=== PATIENT | male | born 1990 | race Caucasian/White ===

== ENCOUNTER 2022-03-09 13:44 | Inpatient (IN) | payer OTHER ==
[2022-03-09] VITALS (21 sets, daily range): BP systolic 117–147; BP diastolic 73–96
[~2022-03-09] VITALS: Ht 188 cm; Wt 91.9 kg
[2022-03-09] MEDS ORDERED: SODIUM CHLORIDE 0.9% 1000ML 1,000 ML IV STA ×3 (14:24)
[2022-03-09] MEDS ORDERED: AMIODARONE HCL 150MG 100 ML ONE (14:26)
[2022-03-09 14:27] LABS: BASOPHILS % 0.5 % (0.0-1.0); EOSINOPHILS # (AUTO) 0.1 (0.0-0.4); EOSINOPHILS % 1.4 % (0.0-6.0); HEMOGLOBIN 15.5 g/dL (14.0-18.0); LYMPHOCYTES # (AUTO) 1.9 (1.0-3.2); LYMPHOCYTES % 29.7 % (18.0-39.1); MEAN CORPUSCULAR HEMOGLOBIN 29.2 pg (28-32); MEAN CORPUSCULAR HGB CONC 33.7 g/dL (31-35); MEAN CORPUSCULAR VOLUME 86.6 fL (81-99); MONOCYTES # (AUTO) 0.8 (0.2-0.8); MONOCYTES % 12.3 % (4.4-11.3); NEUTROPHILS # (AUTO) 3.6 (2.1-6.9); NEUTROPHILS % 55.9 % (38.7-80.0); PLATELET COUNT 234 x10e3/uL (140-360); RED BLOOD COUNT 5.31 x10e6/uL (4.3-5.7); RED CELL DISTRIBUTION WIDTH 12.8 % (11.7-14.4)
[2022-03-09] MEDS ORDERED: AMIODARONE HCL 100 ML IV ONE (14:30)
[2022-03-09] MEDS ORDERED: AMIODARONE 900MG 500 ML IV SCH (14:30)
[2022-03-09] MEDS ORDERED: AMIODARONE HCL 150 MG/100 ML BAG IV ONE (14:30)
[2022-03-09] MEDS ORDERED: AMIODARONE 900MG 500 ML IV ONE (14:39)
[2022-03-09 14:42] LABS: INR 1.01; PROTHROMBIN TIME 14.2 seconds (11.9-14.5)
[2022-03-09 14:43] LABS: PARTIAL THROMBOPLASTIN TIME 28.5 seconds (23.8-35.5)
[2022-03-09 14:50] LABS: ALANINE AMINOTRANSFERASE 19 IU/L (0-55); ALBUMIN 4.2 g/dL (3.5-5.0); ALBUMIN/GLOBULIN RATIO 1.1 (0.8-2.0); ALKALINE PHOSPHATASE 73 IU/L (40-150); ANION GAP 15.4 mmol/L (8-16); BLOOD UREA NITROGEN 16 mg/dL (7-26); BUN/CREATININE RATIO 11 (6-25); CALCIUM 9.2 mg/dL (8.4-10.2); CARBON DIOXIDE 26 mmol/L (22-29); CHLORIDE 102 mmol/L (98-107); CREATINE KINASE 122 IU/L (30-200); CREATININE, SERUM 1.49 mg/dL (0.72-1.25); EST GLOMERULAR FILTRATION RATE 55 ML/MIN (60-); GLUCOSE 153 mg/dL (74-118); POTASSIUM 3.4 mmol/L (3.5-5.1); SODIUM 140 mmol/L (136-145)
[2022-03-09 15:02] LABS: MAGNESIUM 1.4 MG/DL (1.3-2.1); PHOSPHORUS 1.7 MG/DL (2.3-4.7)
[2022-03-09 15:43] LABS: CLARITY,URINE CLEAR (CLEAR); COLOR,URINE YELLOW (YELLOW); KETONES,URINE NEGATIVE (NEGATIVE); LEUKOCYTE ESTERASE ,URINE NEGATIVE (NEGATIVE); NITRITE,URINE NEGATIVE (NEGATIVE); PROTEIN,URINE DIPSTICK NEGATIVE (NEGATIVE); URINE UROBILINOGEN 0.2 mg/dL (0.2 - 1)
[2022-03-09 15:45] LABS: AMPHETAMINES SCREEN,URINE NEGATIVE (NEGATIVE); BENZODIAZEPINES SCREEN,URINE NEGATIVE (NEGATIVE); PHENCYCLIDINE SCREEN,URINE NEGATIVE (NEGATIVE)
[2022-03-09] MEDS: SODIUM CHLORIDE 0.9% 1000ML 1,000 ML IV SCH ×2 (15:45→16:26)
[2022-03-09] MEDS ORDERED: POTASSIUM CHLORIDE 20 MEQ TAB CR PO ONE (18:15)
[2022-03-09] MEDS: MAGNESIUM SULFATE 2GM/50ML 50 ML IV SCH ×2 (18:32→20:34)
[2022-03-09] MEDS ORDERED: MELATONIN 3 MG TAB PO PRN (22:00)
[2022-03-09] MEDS ORDERED: METOPROLOL TARTRATE INJ 1 MG/ML VIAL IV PRN (22:00)
[2022-03-09] MEDS ORDERED: ACETAMINOPHEN 325 MG TAB PO PRN (22:00)
[2022-03-09] MEDS ORDERED: PHOSPHORUS 250 MG TAB PO ONE (22:15)
[2022-03-09] MEDS ORDERED: MAGNESIUM SULF 1GRAM/DEXTROSE 100 ML IV ONE (22:30)
[2022-03-09] MEDS ORDERED: CHOLESTYRAMINE 4 GM PACKET PO ONE (23:30)
[2022-03-10] VITALS (39 sets, daily range): BP systolic 102–144; BP diastolic 63–111
[2022-03-10 00:25] LABS: CREATINE KINASE 98 IU/L (30-200)
[2022-03-10] MEDS: SODIUM CHLORIDE 0.9% 1000ML 1,000 ML IV SCH ×2 (02:18→10:16)
[2022-03-10 04:57] LABS: BASOPHILS % 0.5 % (0.0-1.0); EOSINOPHILS # (AUTO) 0.1 (0.0-0.4); EOSINOPHILS % 1.7 % (0.0-6.0); HEMATOCRIT 40.8 % (38.2-49.6); HEMOGLOBIN 13.3 g/dL (14.0-18.0); LYMPHOCYTES # (AUTO) 1.3 (1.0-3.2); LYMPHOCYTES % 20.1 % (18.0-39.1); MEAN CORPUSCULAR HGB CONC 32.6 g/dL (31-35); MEAN CORPUSCULAR VOLUME 88.9 fL (81-99); MONOCYTES # (AUTO) 0.7 (0.2-0.8); MONOCYTES % 10.8 % (4.4-11.3); NEUTROPHILS # (AUTO) 4.4 (2.1-6.9); NEUTROPHILS % 66.6 % (38.7-80.0); PLATELET COUNT 189 x10e3/uL (140-360); RED BLOOD COUNT 4.59 x10e6/uL (4.3-5.7); RED CELL DISTRIBUTION WIDTH 12.5 % (11.7-14.4)
[2022-03-10 05:19] LABS: ANION GAP 11.5 mmol/L (8-16); CALCIUM 7.9 mg/dL (8.4-10.2); CREATININE, SERUM 1.07 mg/dL (0.72-1.25); POTASSIUM 4.5 mmol/L (3.5-5.1)
[2022-03-10 05:47] LABS: MAGNESIUM 2.4 MG/DL (1.3-2.1); PHOSPHORUS 2.8 MG/DL (2.3-4.7)
[2022-03-10 06:06] LABS: THYROID STIMULATING HORMONE 2.306 uIU/mL (0.350-4.940)
[2022-03-10 08:33] LABS: CREATINE KINASE 94 IU/L (30-200)
[2022-03-10] MEDS ORDERED: AMIODARONE HCL 200 MG TAB PO SCH (12:00)
[2022-03-10] MEDS ORDERED: AMIODARONE HCL 200 MG TAB PO ONE (14:00)
[2022-03-10] MEDS: AMIODARONE HCL 200 MG TAB PO SCH (21:29)
[2022-03-11] VITALS (15 sets, daily range): BP systolic 99–124; BP diastolic 60–83
[2022-03-11 05:50] LABS: ANION GAP 11.3 mmol/L (8-16); CALCIUM 9.4 mg/dL (8.4-10.2); CREATININE, SERUM 1.16 mg/dL (0.72-1.25); POTASSIUM 4.3 mmol/L (3.5-5.1)
[2022-03-11] MEDS: AMIODARONE HCL 200 MG TAB PO SCH ×2 (08:01→16:56)
[2022-03-11] MEDS: METOPROLOL TARTRATE 50 MG TAB PO SCH ×2 (13:08→16:57)
[2022-03-11] MEDS ORDERED: AMIODARONE HCL200 MG PO (16:21)
[2022-03-11] MEDS ORDERED: ACETAMINOPHEN325 M1 PO (16:21)
[2022-03-11] MEDS ORDERED: ONDANSETRON ODT4 MG PO (16:21)
[2022-03-11] MEDS ORDERED: METOPROLOL TART50 MG PO (16:21)
== END 2022-03-11 18:30 | disposition home or self-care (01) | DRG 309 ==
LOC: ER 14:04 → ERHOLD 15:39 → ICU 17:53
PROVIDERS: ADMIT Internal Medicine; ATTEND Internal Medicine
DX: I47.2 Ventricular tachycardia (principal); N17.9 Acute kidney failure, unspecified; I51.7 Cardiomegaly; E87.6 Hypokalemia; E83.42 Hypomagnesemia; E83.39 Other disorders of phosphorus metabolism; E86.0 Dehydration; R19.7 Diarrhea, unspecified; Z20.822 Contact with and (suspected) exposure to COVID-19
CPT/HCPCS: 36415; 71045; 80048; 80053; 80061; 80307; 81001; 82550; 82553; 83036; 83735; 84100; 84443; 84484; 85025; 85379; 85610; 85730; 93005; 93306; 94799; 99284; J3475; J7030; U0002